=== PATIENT | male | born 1990 | race African-American/Black ===

== ENCOUNTER 2023-10-07 15:52 | Emergency (ER) | payer MEDICAID, OTHER ==
[~2023-10-07] VITALS: Ht 182.9 cm; Wt 79.0 kg
[2023-10-07 15:54] VITALS: BP 121/68; PULSE 96; RESP 18; TEMP 98.6; O2SAT 100
== END 2023-10-07 16:39 | disposition home or self-care (01) ==
LOC: ER 15:52
DX: H10.213 Acute toxic conjunctivitis, bilateral (principal)
CPT/HCPCS: 99283